=== PATIENT | male | born 1955 | race Caucasian/White ===

== ENCOUNTER 2019-11-16 23:33 | Emergency (ER) | payer MEDICARE, OTHER ==
[2019-11-17 00:05] VITALS: PULSE 71
--- NOTE | 2019-11-17 00:06 | ERPHSYRPT ---
- History of Present Illness Time Seen by Provider: 11/17/19 00:00 Source: patient Exam Limitations: no limitations Physician History: Is a 63-year-old male who was getting ready for bed when he felt something sting or bite him on the back of the neck. He swatted away what he thought to be a spider. then inspected the area and noticed an abnormality which look like a lesion was something in the middle so she tried to get out with forceps tweezers or some alcohol into the lesion. Timing/Duration: today Quality: burning, painful Severity: moderate Location: neck Possible Causes: insect bite, insect sting Modifying Factors: Improves With: other (All) Associated Symptoms: other (A lesion is noted on the back of the neck in a skin fold which has rounded margins and ulcerated center) Allergies/Adverse Reactions: No Known Drug Allergies Allergy (Unverified 06/09/13 18:20) Home Medications: Gabapentin 100 mg PO TID 06/09/13 [History] Hydrocodone Bit/Acetaminophen [Hydrocodon-Acetaminophen 5-325] 1 each PO TID [History] Allopurinol 100 mg [Zyloprim 100 mg] 100 mg PO TID 01/10/18 [History] Budesonide/Formoterol Fumarate [Symbicort 160-4.5 Mcg Inhaler] 10.2 gm IH BID [History] Furosemide 80 mg [Lasix 80 mg] 80 mg PO DAILY PRN PRN 01/10/18 [History] Ibuprofen [Ibu] 600 mg PO TID PRN 01/10/18 [History] Losartan/Hydrochlorothiazide [Losartan-Hctz 100-25 mg Tab] 1 each PO DAILY 01/10 [History] Metoprolol Succinate 100 mg [Toprol Xl 100 MG] 100 mg PO DAILY 01/10/18 [ History] PANTOPRAZOLE 40 mg Tablet [Protonix 40MG Tablet] 40 mg PO QAM 01/10/18 [ History] Simvastatin 40 mg [Zocor 40 mg] 40 mg PO QHS 01/10/18 [History] Sitagliptin Phos/Metformin HCl [Janumet 50-1,000 mg Tablet] 1 each PO DAILY [History] Hx Tetanus, Diphtheria Vaccination/Date Given: Yes Hx Influenza Vaccination/Date Given: Yes Hx Pneumococcal Vaccination/Date Given: Yes - Review of Systems Constitutional: No Fever, No Chills Eyes: No Symptoms Ears, Nose, & Throat: No Symptoms Respiratory: No Cough, No Dyspnea Cardiac: No Chest Pain, No Edema, No Syncope Abdominal/Gastrointestinal: No Abdominal Pain, No Nausea, No Vomiting, No Diarrhea Genitourinary Symptoms: No Dysuria Musculoskeletal: No Back Pain, No Neck Pain Skin: Skin Lesions, No Rash Neurological: No Dizziness, No Focal Weakness, No Sensory Changes Psychological: No Symptoms Endocrine: No Symptoms All Other Systems: Reviewed and Negative - Past Medical History Pertinent Past Medical History: Yes Neurological History: No Pertinent History Cardiac History: High Cholesterol, Hypertension Respiratory History: Bronchitis, COPD Endocrine Medical History: Diabetes Type II Musculoskeletal History: Arthritis, Degenerative Disk Disease GI Medical History: GERD Other Medical History: PREVIOUS BILATERA RENETTA; 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 HAD B CTR APPROX 20 YEARS AGO. - Past Surgical History Past Surgical History: Yes Musculoskeletal: Joint Replacement (hips) Other Surgical History: CARPAL TUNNEL BILAT. LT FOOT BONE SPUR - Social History Smoking Status: Former smoker Exposure to second hand smoke: No Alcohol Use: Socially Drug Use: none Patient Lives Alone: No Significant Family History: no pertinent family hx - Physical Exam General Appearance: mild distress, alert, obese Eye Exam: PERRL/EOMI, eyes nml inspection Ears, Nose, Throat Exam: normal ENT inspection, pharynx normal, moist mucous membranes Neck Exam: normal inspection, non-tender, supple, full range of motion Respiratory Exam: normal breath sounds, lungs clear, No respiratory distress Cardiovascular Exam: regular rate/rhythm, normal heart sounds Gastrointestinal/Abdomen Exam: soft, mass, No tenderness Back Exam: normal inspection, normal range of motion, No CVA tenderness, No vertebral tenderness Extremity Exam: normal inspection, normal range of motion Neurologic Exam: alert, oriented x 3, cooperative, normal mood/affect, sensation nml, No motor deficits Skin Exam: normal color, warm, dry, other (To the posterior neck and left skin fold shows a lesion which measures about three fourths of a centimeter across with a central ulceration with mounded red aid edges like a basal cell also be an insect bite but it appears older than the timing described by the patient.) Lymphatic Exam: No adenopathy O2 Delivery: Room Air - Course Nursing assessment & vital signs reviewed: Yes - Progress Progress: unchanged - Departure Departure Disposition: Home Clinical Impression: Insect bite Condition: Stable Critical Care Time: No Referrals: EMILY DUVALL MD [Primary Care Provider] - Instructions: Insect Bites and Stings (DC) Prescriptions: Cephalexin Mh 500 mg [Keflex 500 mg] 500 mg PO TID #21 capsule
[2019-11-17] MEDS ORDERED: KEFLEX 500 MG PO ONE (00:07)
[2019-11-17] MEDS ORDERED: KEFLEX 500 MG ONE (00:10)
[2019-11-17 00:25] VITALS: BP 125/74; O2SAT 93
== END 2019-11-17 00:24 | disposition home or self-care (01) ==
LOC: ED 23:33
DX: S10.86XA Insect bite of other specified part of neck, initial encounter (principal); Z79.899 Other long term (current) drug therapy; I10 Essential (primary) hypertension; E78.00 Pure hypercholesterolemia, unspecified; J44.9 Chronic obstructive pulmonary disease, unspecified; E11.9 Type 2 diabetes mellitus without complications; K21.9 Gastro-esophageal reflux disease without esophagitis
CPT/HCPCS: 99283; A9270-GY

== ENCOUNTER 2023-02-03 10:38 | Emergency (ER) | payer MEDICARE, OTHER ==
[2023-02-03 11:52] LABS: Absolute Neutrophil Ct (ANC) 5.79 x10^3/uL (1.4-6.9); BASOPHIL % 0.7 % (0.0-0.4); Basophil (Absolute #) 0.05 x10^3/uL (0-0.4); Eosinophil % 2.5 % (0.00-5.0); Eosinophil (Absolute #) 0.18 x10^3/uL (0-0.5); Hematocrit 33.5 % (42-50); Hemoglobin 10.5 g/dL (12.5-18.0); IMMATURE GRAN # 0.02 x10^3u/L (0.00-0.03); IMMATURE GRAN % 0.3 % (0.00-0.4); Lymphocyte (Absolute #) 0.76 x10^3/uL (1.0-4.6); Lymphocytes % 10.5 % (24.0-44.0); Mean Cell Volume 105.3 fL (78-100); Mean Corpuscular Hgb Concent. 31.3 g/dL (32-36); Mean Platelet Volume 10.1 fL (7.5-11.0); Monocyte (Absolute #) 0.47 x10^3/uL (0.0-1.3); Monocytes % 6.5 % (0.0-12.0); Neutrophil % 79.5 % (36.0-66.0); Platelet Count 197 x10^3/uL (150-450); Red Blood Count 3.18 x10^6/uL (4.1-5.6); Red Cell Distribution Width 16.4 % (11.5-14.0); White Blood Count 7.3 x10^3/uL (4.0-10.5)
[2023-02-03 12:04] LABS: ALBUMIN 3.9 g/dL (3.5-5.0); ALKALINE PHOSPHATASE 133 U/L (38-126); ANION GAP 15.3 MEQ/L (5-15); BLOOD UREA NITROGEN 32 mg/dL (9-20); CHLORIDE 106 mmol/L (98-107); Calcium 8.8 mg/dL (8.4-10.2); Carbon Dioxide 25 mmol/L (22-30); EST GLOMERULAR FILTRATION RATE > 60.0 ML/MIN; Glucose 100 mg/dL (74-106); INR 1.05 (0.8-3.0); PROTIME 11.4 SECONDS (9.4-12.5); PTT 29.9 SECONDS (25.1-36.5); Potassium 4.8 mmol/L (3.5-5.1); SGOT/AST 24 U/L (17-59); SGPT/ALT 21 U/L (0-50); SODIUM 141 mmol/L (137-145); Total Protein 7.2 g/dL (6.3-8.2)
[2023-02-03 12:50] VITALS: O2SAT 94
--- NOTE | 2023-02-03 12:50 | ERPHSYRPT ---
- History of Present Illness Source: patient, other () Exam Limitations: no limitations Patient Subjective Stated Complaint: PT HERE FOR A FALL TODAY, HE WAS GETTING IN TRUCK AND BECAME UNSTEADY AND LOWERED SELF TO GROUND, HE STATES HES LEFT LEG WAS BENT BACK HE WAS HELPED ONTO CART AND BROUGHT INTO ER Triage Nursing Assessment: PT ALERT, REAP EASY, SKIN W/D/P, SKIN W/D/P, MOVES ALL EXT, HAS SMALL SKIN TEAR TO RIGHT ELBOW Physician History: 67 yo WM fell while getting into his truck after getting blood work at hospital. Pt states that he landed on his LLE flexed position and complains of L thigh, L hip, and buttock pain which is minimal. He denies LOC/head injury/chest injury- chest pain/abdominal pain/dyspnea/C,T, or L-spine pain/UE pain. Pt is 2L O2 dependent at home. later expressed concern in private that pt is a little lethargic. Occurred: just prior to arrival Reason for Fall: lost balance Injuries/Pain Location: lower (L hip/L thigh/buttocks) Loss of Consciousness: no loss of consciousness Quality: aching Severity of Pain-Max: moderate Severity of Pain-Current: moderate Modifying Factors: Improves With: movement Associated Symptoms (Fall): denies symptoms Allergies/Adverse Reactions: No Known Drug Allergies Allergy (Verified 02/03/23 10:58) Home Medications: Gabapentin 100 mg PO TID 06/09/13 [History] Hydrocodone/Acetaminophen [Hydrocodon-Acetaminophen 5-325] 1 each PO TID 06/09/13 [History] Allopurinol 100 mg [Zyloprim 100 mg] 100 mg PO TID 01/10/18 [History] Budesonide/Formoterol Fumarate [Symbicort 160-4.5 Mcg Inhaler] 10.2 gm IH BID 01/10/18 [History] Furosemide 80 mg [Lasix 80 mg] 80 mg PO DAILY PRN PRN 01/10/18 [History] Ibuprofen [Ibu] 600 mg PO TID PRN 01/10/18 [History] Losartan/Hydrochlorothiazide [Losartan-Hctz 100-25 mg Tab] 1 each PO DAILY 01/10/18 [History] Metoprolol Succinate 100 mg [Toprol Xl 100 MG] 100 mg PO DAILY 01/10/18 [History] PANTOPRAZOLE 40 mg Tablet [Protonix 40MG Tablet] 40 mg PO QAM 01/10/18 [History] Simvastatin 40 mg [Zocor 40 mg] 40 mg PO QHS 01/10/18 [History] Sitagliptin Phos/Metformin HCl [Janumet 50-1,000 mg Tablet] 1 each PO DAILY 01/10/18 [History] Rivaroxaban [Xarelto] 20 mg PO DAILY 02/03/23 [History] Hx Tetanus, Diphtheria Vaccination/Date Given: Yes Hx Influenza Vaccination/Date Given: Yes Hx Pneumococcal Vaccination/Date Given: Yes Immunizations Up to Date: Yes Travel Risk - International Travel Have you traveled outside of the country in past 3 weeks: No - Coronavirus Screening Are you exhibiting any of the following symptoms?: No Close contact with a COVID-19 positive Pt in past 14-21 Days: No - Vaccine Status Have you recieved a Covid-19 vaccination: Yes 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: [facility] - Vaccination Dates Date of 2cond Vaccination (if applicable): 2020 - Review of Systems Constitutional: No Symptoms Eyes: No Symptoms Ears, Nose, & Throat: No Symptoms Respiratory: No Symptoms Cardiac: No Symptoms Abdominal/Gastrointestinal: No Symptoms Genitourinary Symptoms: No Symptoms Skin: No Symptoms Neurological: No Symptoms Psychological: No Symptoms Endocrine: No Symptoms Hematologic/Lymphatic: No Symptoms Immunological/Allergic: No Symptoms - Past Medical History Pertinent Past Medical History: Yes Neurological History: No Pertinent History Cardiac History: High Cholesterol, Hypertension Respiratory History: Bronchitis, COPD Endocrine Medical History: Diabetes Type II Musculoskeletal History: Arthritis, Degenerative Disk Disease GI Medical History: GERD Other Medical History: PREVIOUS BILATERA RENETTA; 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 HAD B CTR APPROX 20 YEARS AGO. [place] ,NODULES ON LUNG 2022 - Past Surgical History Past Surgical History: Yes Musculoskeletal: Joint Replacement, Orthopedic Surgery Other Surgical History: CARPAL TUNNEL BILAT. LT FOOT BONE SPUR. SHOULDER,. HIPS - Social History Smoking Status: Former smoker Exposure to second hand smoke: No Alcohol Use: Socially Drug Use: none Patient Lives Alone: No Significant Family History: no pertinent family hx - Nursing Vital Signs Nursing Vital Signs: Initial Vital Signs Blood Pressure 119/60 02/03/23 11:00 Pain Scale Pain Intensity 0 WNL - Daniel Coma Score Best Eye Response ([place]): (4) open spontaneously Best Verbal Response (Daniel): (5) oriented Best Motor Response ([place]): (6) obeys commands Daniel Total: 15 - Physical Exam General Appearance: no apparent distress Head Injury: no evidence of injury Eye Exam: PERRL/EOMI, eyes nml inspection ENT Exam: airway nml, evidence of ENT injury, No clear fluid (ears), No clear fluid (nose) Neck Exam: supple, trachea midline, full range of motion (C-spine NTTP) Respiratory/Chest Exam: chest tenderness, normal breath sounds, No respiratory distress Cardiovascular Exam: irregular (Afib), No murmur Gastrointestinal Exam: soft, normal bowel sounds, No tenderness Back Exam: normal inspection, normal range of motion, No CVA tenderness, No vertebral tenderness (No T or L-spine TTP) Extremity Exam: normal inspection, pelvis stable (L hip mildly TTP) Peripheral Pulses: carotid (R): 2+, carotid (L): 2+ Neurologic Exam: alert, oriented x 3, cooperative, 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 II-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 nml as tested, normal mood/affect, nml cerebellar function, nml station & gait, sensation nml, No motor deficits, No sensory deficit Skin Exam: normal color, warm, dry SpO2 Interpretation: normal SpO2: 94 O2 Delivery: Room Air - Course Nursing assessment & vital signs reviewed: Yes EKG Interpreted by Me: RATE (67/Afib/Prolonged QTc/Low voltage/Non-specific ST- [place] changes) - Radiology Exams Chest X-ray Interpretation: Reviewed by me, Discussed w/ radiologist (CXR nothing acute) Femur X-ray Interpretation: Reviewed by me, Discussed w/ radiologist (L femur neg for Fx) - CT Exams Head CT Interpretation: Discussed w/radiologist (CT head neg) Pelvis CT Interpretation: Discussed w/radiologist (CT pelvis neg for Fx) Ordered Tests: Active Orders 24 hr Category Date Time Status EKG-ER Only STAT Care 02/03/23 12:54 Completed CHEST 1 VIEW (PORTABLE) Stat Exams 02/03/23 11:37 Completed FEMUR Stat Exams 02/03/23 11:13 Completed HEAD WITHOUT CONTRAST [CT] Stat Exams 02/03/23 11:35 Completed PELVIS WITHOUT CONTRAST [CT] Stat Exams 02/03/23 11:13 Completed CBC W DIFF Stat Lab 02/03/23 11:50 Completed CMP Stat Lab 02/03/23 11:50 Completed MAGNESIUM Stat Lab 02/03/23 11:50 Completed PROTIME WITH INR Stat Lab 02/03/23 11:50 Completed PTT Stat Lab 02/03/23 11:50 Completed TROPONIN Q4H Lab 02/03/23 11:50 Completed Lab/Rad Data: Laboratory Result Diagrams 02/03/23 11:50 02/03/23 11:50 Laboratory Results 02/03/23 02/03/23 02/03/23 Range/Units 11:50 11:50 11:50 WBC (4.0-10.5) x10^3/uL RBC (4.1-5.6) x10^6/uL Hgb (12.5-18.0) g/dL Hct (42-50) % MCV (78-100) fL MCH (26-32) pg MCHC (32-36) g/dL RDW (11.5-14.0) % Plt Count (150-450) x10^3/uL MPV (7.5-11.0) fL Gran % (36.0-66.0) % Immature Gran % (Auto) (0.00-0.4) % Nucleat RBC Rel Count (0.00-0.1) % Eos # (Auto) (0-0.5) x10^3/uL Immature Gran # (Auto) (0.00-0.03) x10^3u/L Absolute Lymphs (auto) (1.0-4.6) x10^3/uL Absolute Monos (auto) (0.0-1.3) x10^3/uL Absolute Nucleated RBC (0.00-0.01) x10^3u/L Lymphocytes % (24.0-44.0) % Monocytes % (0.0-12.0) % Eosinophils % (0.00-5.0) % Basophils % (0.0-0.4) % Absolute Granulocytes (1.4-6.9) x10^3/uL Basophils # (0-0.4) x10^3/uL PT 11.4 (9.4-12.5) SECONDS INR 1.05 (0.8-3.0) APTT 29.9 (25.1-36.5) SECONDS Sodium 141 (137-145) mmol/L Potassium 4.8 (3.5-5.1) mmol/L Chloride 106 (98-107) mmol/L Carbon Dioxide 25 (22-30) mmol/L Anion Gap 15.3 H (5-15) MEQ/L BUN 32 H (9-20) mg/dL Creatinine 0.80 (0.66-1.25) mg/dL Estimated GFR > 60.0 ML/MIN Glucose 100 (74-106) mg/dL Calcium 8.8 (8.4-10.2) mg/dL Magnesium 2.0 (1.6-2.3) mg/dL Total Bilirubin 0.40 (0.2-1.3) mg/dL AST 24 (17-59) U/L ALT 21 (0-50) U/L Alkaline Phosphatase 133 H (38-126) U/L Troponin I < 0.012 (0.000-0.034) ng/mL Serum Total Protein 7.2 (6.3-8.2) g/dL Albumin 3.9 (3.5-5.0) g/dL 02/03/23 Range/Units 11:50 WBC 7.3 (4.0-10.5) x10^3/uL RBC 3.18 L (4.1-5.6) x10^6/uL Hgb 10.5 L (12.5-18.0) g/dL Hct 33.5 L (42-50) % MCV 105.3 H (78-100) fL MCH 33.0 H (26-32) pg MCHC 31.3 L (32-36) g/dL RDW 16.4 H (11.5-14.0) % Plt Count 197 (150-450) x10^3/uL MPV 10.1 (7.5-11.0) fL Gran % 79.5 H (36.0-66.0) % Immature Gran % (Auto) 0.3 (0.00-0.4) % Nucleat RBC Rel Count 0.0 (0.00-0.1) % Eos # (Auto) 0.18 (0-0.5) x10^3/uL Immature Gran # (Auto) 0.02 (0.00-0.03) x10^3u/L Absolute Lymphs (auto) 0.76 L (1.0-4.6) x10^3/uL Absolute Monos (auto) 0.47 (0.0-1.3) x10^3/uL Absolute Nucleated RBC 0.00 (0.00-0.01) x10^3u/L Lymphocytes % 10.5 L (24.0-44.0) % Monocytes % 6.5 (0.0-12.0) % Eosinophils % 2.5 (0.00-5.0) % Basophils % 0.7 (0.0-0.4) % Absolute Granulocytes 5.79 (1.4-6.9) x10^3/uL Basophils # 0.05 (0-0.4) x10^3/uL PT (9.4-12.5) SECONDS INR (0.8-3.0) APTT (25.1-36.5) SECONDS Sodium (137-145) mmol/L Potassium (3.5-5.1) mmol/L Chloride (98-107) mmol/L Carbon Dioxide (22-30) mmol/L Anion Gap (5-15) MEQ/L BUN (9-20) mg/dL Creatinine (0.66-1.25) mg/dL Estimated GFR ML/MIN Glucose (74-106) mg/dL Calcium (8.4-10.2) mg/dL Magnesium (1.6-2.3) mg/dL Total Bilirubin (0.2-1.3) mg/dL AST (17-59) U/L ALT (0-50) U/L Alkaline Phosphatase (38-126) U/L Troponin I (0.000-0.034) ng/mL Serum Total Protein (6.3-8.2) g/dL Albumin (3.5-5.0) g/dL - Progress Progress Note: 02/03/23 13:38 Nursing note and vital signs reviewed No food or housing insecurities noted Additional history per All lab results reviewed and shared w pt/ CT results/XR results reviewed and shared w pt/ Pt refused pain meds during entire stay and has [place] at home Serial neuro exams WNL Pt's Hb has decreased over the last 2-3 months, but pt denies melena/hematochezia and has had regular colonoscopies per 02/03/23 14:08 Pt has difficult ambulation at baseline, and we were unable to get him into his truck. He refuses observation at this time, and is willing to take him home. She states that she has home health to help w his needs. Counseled pt/family regarding: lab results, diagnosis, need for follow-up, rad results Medical Desision Making - Independent Historian Additional History obtained from: Spouse - Diagnostic Testing Radiological Interpretation: Reviewed by me, Discussed w/ radiologist - Risk of complications Low Risk: Low risk of morbidity from additional dx testing or treatment - Departure Departure Disposition: Home Clinical Impression: Contusion of thigh, left, Strain of left hip Condition: Stable Critical Care Time: No Referrals: EMILY DUVALL MD [Primary Care Provider] - Follow up/PCP as directed Instructions: Contusion (DC), Preventing Falls in Older Adults Additional Instructions: Ice for 12-24 hours Continue with home pain meds Watch for blood in stool or black stool Return to ER as needed Follow up with your family
--- NOTE | 2023-02-03 13:02 | XRAY ---
Indication: Confusion and lethargy. Status post fall. Multiple contiguous axial images obtained through the head without contrast. Comparison: None Age-appropriate global atrophy. No acute intracranial hemorrhage, abnormal extra-axial fluid collection, or mass effect. Fourth ventricle is midline without hydrocephalus. Parekh-white matter differentiation preserved. Bony calvarium intact. Visualized paranasal sinuses and mastoid air cells are clear. Impression: Normal CT head without contrast exam for patient's age.
--- NOTE | 2023-02-03 13:06 | XRAY ---
Indication: Pain following fall. Multiple contiguous axial images obtained through the pelvis with special attention to the osseous structures. Sagittal and coronal reformatted images obtained. Comparison: None Extreme beam artifact from bilateral total hip arthroplasty limits exam. Remaining visualized osseous structures emesis osteopenia. Moderate degenerative changes visualized lower lumbar spine. No gross acute fracture, dislocation, or suspicious bony lesions. Visualized noncontrasted soft tissues demonstrates large infraumbilical fatty ventral hernia with small fluid. Also incidental small fatty left inguinal hernia and moderate scattered vascular calcifications. Impression: 1. 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 No gross acute fracture/dislocation. 2. Osteopenia, lower lumbar degenerative changes, fatty ventral hernia, fatty left inguinal hernia, and scattered arteriosclerotic disease.
--- NOTE | 2023-02-03 13:08 | XRAY ---
Indication: Status post fall. Comparison: July 27, 2022 Portable chest again demonstrates tiny right lung calcific granulomas. No focal infiltrate, consolidation, large effusion. Heart is not enlarged. Bony thorax intact again with osteopenia, degenerative changes, old right rib fractures, and mild dextroscoliosis. Interval bilateral shoulder arthroplasty. Impression: Continued nonacute chest with chronic features.
--- NOTE | 2023-02-03 13:08 | XRAY ---
Indication: Pain following fall. Comparison: None 2 view left femur demonstrates total hip arthroplasty with intact bipolar prosthesis, osteopenia, and moderate scattered vascular calcifications. No other bony, articular, or soft tissue abnormalities.
[2023-02-03 13:23] VITALS: BP 127/99; PULSE 61
== END 2023-02-03 14:43 | disposition home or self-care (01) ==
LOC: ED 10:38
DX: S76.012A Strain of muscle, fascia and tendon of left hip, initial encounter (principal); S70.12XA Contusion of left thigh, initial encounter; V58.4XXA Person boarding or alighting a pick-up truck or van injured in noncollision transport accident, initial encounter; Y92.481 Parking lot as the place of occurrence of the external cause; E78.5 Hyperlipidemia, unspecified; I10 Essential (primary) hypertension; E11.9 Type 2 diabetes mellitus without complications; Z79.01 Long term (current) use of anticoagulants; Z79.84 Long term (current) use of oral hypoglycemic drugs; Z79.891 Long term (current) use of opiate analgesic; Z79.899 Other long term (current) drug therapy
CPT/HCPCS: 36415; 70450; 71045; 72192; 73552; 80053; 83735; 84484; 85025; 85610; 85730; 93005; 99284

== ENCOUNTER 2023-04-30 22:15 | Emergency (ER) | payer MEDICARE, OTHER ==
[~2023-04-30 22:15] MED LIST: ATROPINE SULFATE 1MG SYR ABBOJECT IV ONE; GlucaGen 1 MG ONE
[2023-04-30] MEDS ORDERED: GlucaGen 1 MG IM ONE (22:16)
[2023-04-30] MEDS ORDERED: ATROPINE SULFATE 1MG SYR ABBOJECT IV ONE (22:21)
[2023-04-30] MEDS ORDERED: Zofran 4 MG/2 ML VIAL ONE (22:27)
[2023-04-30 23:20] LABS: Absolute Neutrophil Ct (ANC) 9.35 x10^3/uL (1.4-6.9); BASOPHIL % 0.2 % (0.0-0.4); Basophil (Absolute #) 0.02 x10^3/uL (0-0.4); Eosinophil % 1.5 % (0.00-5.0); Eosinophil (Absolute #) 0.15 x10^3/uL (0-0.5); Hematocrit 42.4 % (42-50); Hemoglobin 13.2 g/dL (12.5-18.0); IMMATURE GRAN # 0.03 x10^3u/L (0.00-0.03); IMMATURE GRAN % 0.3 % (0.00-0.4); Lymphocyte (Absolute #) 0.62 x10^3/uL (1.0-4.6); Mean Cell Volume 109.8 fL (78-100); Mean Corpuscular Hemoglobin 34.2 pg (26-32); Mean Corpuscular Hgb Concent. 31.1 g/dL (32-36); Mean Platelet Volume 10.2 fL (7.5-11.0); Monocyte (Absolute #) 0.15 x10^3/uL (0.0-1.3); Monocytes % 1.5 % (0.0-12.0); NUCLEATED RBC # 0.03 x10^3u/L (0.00-0.01); NUCLEATED RBC % 0.3 % (0.00-0.1); Neutrophil % 90.5 % (36.0-66.0); Platelet Count 279 x10^3/uL (150-450); Red Blood Count 3.86 x10^6/uL (4.1-5.6); Red Cell Distribution Width 16.7 % (11.5-14.0); White Blood Count 10.3 x10^3/uL (4.0-10.5)
--- NOTE | 2023-04-30 23:37 | ERPHSYRPT ---
- History of Present Illness Time Seen by Provider: 04/30/23 22:20 Source: patient, family, EMS Exam Limitations: clinical condition Patient Subjective Stated Complaint: per ems, pt was sitting on the bathroom stool and fell off, possible syncopal episode. heart rate was 20's and 30's when they arrived. Triage Nursing Assessment: pt alert and oriented, answers questions approp. pt alert and oriented, states he does have some dizziness, weakness. denies chest pain or pressure. skin dusky, diaphoretic. heart rate in 30's afib. unable to feel peripheral pulses at this time. Physician History: This is a morbidly obese 67-year-old white male patient who has a history of atrial fibrillation on Xarelto and metoprolol. He took his metoprolol this morning. He typically takes it once a day. However, he was started on propranolol 3 times a day. Despite already taking his metoprolol earlier today he took a dose of propranolol at 4 PM. Patient was sitting on the bathroom toilet when he fell off. There is a question whether he had a vasovagal response or syncopal episode. However he was very weak and minimally responsive. Paramedics were contacted and patient was brought into the emergency room by the ambulance service who provided independent medical history. His heart rate was in the 20s to 30s. However his systolic blood pressure was normal. He was symptomatic with dizziness. He denies chest pain. He also felt weak. His skin was cool and clammy and diaphoretic on arrival to the emergency department. Family, patient has a history of gastroesophageal reflux disease, morbid obesity hypertension diabetes and hyperlipidemia. Timing/Duration: today Activities at Onset: other (Using the toilet in the bathroom) Location: other (No chest pain) Severity of Pain-Max: none Severity of Pain-Current: none Nitro Today/Relief: no nitro taken today Aspirin Treatment Today: no aspirin today Associated Symptoms: diaphoresis, syncope, weakness, No nausea, No vomiting, No shortness of breath, No chest pain Prior Chest Pain/Cardiac Workup: cardiac cath, echocardiography Allergies/Adverse Reactions: pramipexole [From Mirapex] Allergy (Intermediate, Verified 04/30/23 22:39) hallucinations Home Medications: Gabapentin 800 mg PO TID 06/09/13 [History] Allopurinol 100 mg [Zyloprim 100 mg] 100 mg PO DAILY 01/10/18 [History] Metoprolol Succinate 100 mg [Toprol Xl 100 MG] 50 mg PO DAILY 01/10/18 [History] PANTOPRAZOLE 40 mg Tablet [Protonix 40MG Tablet] 40 mg PO QAM 01/10/18 [History] Rivaroxaban [Xarelto] 20 mg PO HS 02/03/23 [History] Albuterol 2.5 mg/3 ml Neb [Proventil 2.5 mg/3 ml Neb] 2.5 mg IH Q4-6HPRN PRN 05/01/23 [History] Atorvastatin Calcium 80 mg PO DAILY 05/01/23 [History] Clotrimazole/Betamethasone Dip [Clotrimazole-Betamethasone Lot] 1 applic TP BID 05/01/23 [History] Cyanocobalamin 1000 Mcg/ml [Cyanocobalamin B-12 1000 MCG/ML] 1,000 mcg IM UD 05/01/23 [History] Diphenoxylate HCl/Atropine [Lomotil Tablet] 1 each PO TIDPRN PRN 05/01/23 [History] Empagliflozin [Jardiance] 10 mg PO DAILY 05/01/23 [History] Fluticasone/Umeclidin/Vilanter [Trelegy Ellipta 100-62.5-25] 1 each IH DAILY 05/01/23 [History] Hydrocodone/Acetaminophen [Hydrocodone-Acetamin 10-325 mg] 1 each PO Q6HPRN PRN 05/01/23 [History] Latanoprost [Xalatan] 1 ml OP HS 05/01/23 [History] Losartan Potassium 50 mg [Cozaar 50 MG] 50 mg PO DAILY 05/01/23 [History] Metformin HCl [Glumetza] 1,000 mg PO BID 05/01/23 [History] Primidone 50 MG [Mysoline 50Mg] 200 mg PO TID 05/01/23 [History] Propranolol HCl [Inderal ] 20 mg PO TID 05/01/23 [History] Rasagiline Mesylate 1 mg PO DAILY 05/01/23 [History] Spironolactone 25 mg [Aldactone 25 MG] 25 mg PO DAILY 05/01/23 [History] Tamsulosin HCl 0.4 mg [Flomax 0.4 MG] 0.4 mg PO DAILY 05/01/23 [History] Torsemide 20 mg [Demadex 20 mg] 40 mg PO BID 05/01/23 [History] Hx Tetanus, Diphtheria Vaccination/Date Given: Yes Hx Influenza Vaccination/Date Given: Yes Hx Pneumococcal Vaccination/Date Given: Yes Immunizations Up to Date: Yes Travel Risk - International Travel Have you traveled outside of the country in past 3 weeks: No - Coronavirus Screening Are you exhibiting any of the following symptoms?: No Close contact with a COVID-19 positive Pt in past 14-21 Days: No - Vaccine Status Have you recieved a Covid-19 vaccination: Yes Route Rider Supervisor: Moderna - Vaccination Dates Date of 2cond Vaccination (if applicable): 2020 - Review of Systems Constitutional: No Symptoms Eyes: No Symptoms Ears, Nose, & Throat: No Symptoms Respiratory: No Symptoms Cardiac: Syncope, Other (Slow heart rate) Abdominal/Gastrointestinal: No Symptoms Genitourinary Symptoms: No Symptoms Musculoskeletal: No Symptoms Skin: No Symptoms Neurological: Dizziness Psychological: No Symptoms Endocrine: No Symptoms Hematologic/Lymphatic: No Symptoms Immunological/Allergic: No Symptoms All Other Systems: Reviewed and Negative - Past Medical History Pertinent Past Medical History: Yes Neurological History: No Pertinent History Cardiac History: Congestive Heart Failure, High Cholesterol, Hypertension Respiratory History: Bronchitis, CHF, COPD Endocrine Medical History: Diabetes Type II Musculoskeletal History: Arthritis, Degenerative Disk Disease GI Medical History: GERD Other Medical History: PREVIOUS BILATERA RENETTA; 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 HAD B CTR APPROX 20 YEARS AGO. [place] ,NODULES ON LUNG 2022. 80% coronary artery blockage and scheduled for heart cath - Past Surgical History Past Surgical History: Yes Musculoskeletal: Joint Replacement, Orthopedic Surgery Other Surgical History: CARPAL TUNNEL BILAT. LT FOOT BONE SPUR. SHOULDER,. HIPS - Social History Smoking Status: Former smoker Exposure to second hand smoke: No Alcohol Use: Socially Drug Use: none Patient Lives Alone: No Significant Family History: no pertinent family hx - Nursing Vital Signs Nursing Vital Signs: Initial Vital Signs Pulse Rate 38 L 04/30/23 22:16 Respiratory Rate 18 04/30/23 22:16 Blood Pressure 115/59 04/30/23 22:16 O2 Sat by Pulse Oximetry 92 L 04/30/23 22:16 Pain Scale Pain Intensity 0 - Physical Exam General Appearance: mild distress, alert, anxiety, obese Eye Exam: PERRL/EOMI, eyes nml inspection Ears, Nose, Throat Exam: normal ENT inspection, moist mucous membranes Neck Exam: normal inspection, non-tender, supple, full range of motion Respiratory Exam: normal breath sounds, lungs clear, airway intact, No chest tenderness, No respiratory distress Cardiovascular Exam: normal heart sounds, normal peripheral pulses, bradycardia Rectal Exam: not done Back Exam: normal inspection, normal range of motion, No CVA tenderness, No vertebral tenderness Extremity Exam: normal range of motion, pelvis stable Neurologic Exam: alert, oriented x 3, cooperative, tableau developer II-XII nml as tested, other Skin Exam: diaphoresis, pale Lymphatic Exam: No adenopathy SpO2 Interpretation: borderline oxygenation SpO2: 94 O2 Delivery: Nasal Cannula (4 L oxygen. He is usually on this amount of oxygen at home) - Course Nursing assessment & vital signs reviewed: Yes EKG Interpreted by Me: RATE (27), Other (This has heart rate of 27 and junctional rhythm. No obvious acute ischemic changes.) Ordered Tests: Active Orders 24 hr Category Date Time Status EKG-ER Only STAT Care 04/30/23 23:15 Active Byrd [Catheter-[place] Byrd] STAT Care 05/01/23 03:06 Active IV Insertion STAT Care 04/30/23 23:15 Active BMP Stat Lab 05/01/23 02:55 Completed BMP Stat Lab 05/01/23 07:00 Ordered CBC W DIFF Stat Lab 04/30/23 23:17 Completed CMP Stat Lab 04/30/23 23:17 Completed MAG [MAGNESIUM] Stat Lab 04/30/23 23:17 Completed TROPONIN Q4H Lab 04/30/23 23:17 Completed TROPONIN Q4H Lab 05/01/23 02:55 Completed TROPONIN Q4H Lab 05/01/23 07:15 Ordered Respiratory Therapy Assessment DAILY RT 05/01/23 00:43 Completed Medication Summary Discontinued Medications Generic Name Dose Route Start Last Admin Trade Name Freq PRN Reason Stop Dose Admin Albuterol Sulfate 2.5 mg 05/01/23 00:42 05/01/23 00:46 Albuterol Sulfate 2.5 Mg/3 Ml Neb IH 05/01/23 00:43 2.5 mg STAT ONE Administration Albuterol Sulfate Confirm 05/01/23 00:45 Albuterol Sulfate 2.5 Mg/3 Ml Neb Administered 05/01/23 00:46 Dose 2.5 mg IH .STK-MED ONE Calcium Gluconate 1,000 mg 04/30/23 23:43 05/01/23 00:05 Calcium Gluconate 1000 Mg/10 Ml Vial IV 04/30/23 23:44 1,000 mg STAT ONE Administration Calcium Gluconate Confirm 04/30/23 23:57 Calcium Gluconate 1000 Mg/10 Ml Vial Administered 04/30/23 23:58 Dose 1,000 mg IV .STK-MED ONE Dextrose 50 ml 05/01/23 00:58 05/01/23 01:01 Dextrose 50%-Water 50 Ml Abboject IV 05/01/23 00:59 50 ml STAT ONE Administration Dextrose Confirm 05/01/23 00:59 Dextrose 50%-Water 50 Ml Abboject Administered 05/01/23 01:00 Dose 50 ml IV .STK-MED ONE Dextrose 50 ml 05/01/23 03:25 05/01/23 05:20 Dextrose 50%-Water 50 Ml Abboject IV 05/01/23 03:26 50 ml STAT ONE Administration Dextrose Confirm 05/01/23 05:17 Dextrose 50%-Water 50 Ml Abboject Administered 05/01/23 05:18 Dose 50 ml IV .STK-MED ONE Furosemide 20 mg 05/01/23 00:39 05/01/23 00:55 Furosemide 20 Mg/Vial IV 05/01/23 00:40 20 mg STAT ONE Administration Furosemide Confirm 05/01/23 00:47 Furosemide 20 Mg/Vial Administered 05/01/23 00:48 Dose 20 mg .ROUTE .STK-MED ONE Furosemide 20 mg 05/01/23 03:26 05/01/23 05:20 Furosemide 20 Mg/Vial IV 05/01/23 03:27 20 mg STAT ONE Administration Furosemide Confirm 05/01/23 05:16 Furosemide 20 Mg/Vial Administered 05/01/23 05:17 Dose 20 mg .ROUTE .STK-MED ONE Sodium Chloride Confirm 05/01/23 00:00 Sodium Chloride 0.9% Administered 05/01/23 00:01 Dose 100 mls @ ud .ROUTE .STK-MED ONE Insulin Human Regular 6 unit 05/01/23 00:39 05/01/23 01:02 Insulin Regular, Human 1 Unit IV 05/01/23 00:40 6 unit STAT ONE Administration Insulin Human Regular Confirm 05/01/23 00:53 Insulin Regular, Human 1 Unit Administered 05/01/23 00:54 Dose 6 unit .ROUTE .STK-MED ONE Insulin Human Regular 5 unit 05/01/23 03:26 05/01/23 05:20 Insulin Regular, Human 1 Unit IV 05/01/23 03:27 5 unit STAT ONE Administration Insulin Human Regular Confirm 05/01/23 05:16 Insulin Regular, Human 1 Unit Administered 05/01/23 05:17 Dose 5 unit .ROUTE .STK-MED ONE Ondansetron HCl Confirm 04/30/23 22:27 Ondansetron Hcl 4 Mg/2 Ml Vial Administered 04/30/23 22:28 Dose 4 mg .ROUTE .STK-MED ONE Patiromer 8.4 gm 05/01/23 00:41 05/01/23 00:55 Patiromer Calcium Sorbitex 8.4 Gm Powd.Pack PO 05/01/23 00:42 8.4 gm STAT STA Administration Patiromer Confirm 05/01/23 00:47 Patiromer Calcium Sorbitex 8.4 Gm Powd.Pack Administered 05/01/23 00:48 Dose 8.4 gm PO .STK-MED ONE Sodium Bicarbonate 50 meq 05/01/23 00:38 05/01/23 00:54 Sodium Bicarbonate 1 Meq/Ml 50ml Syringe IV 05/01/23 00:39 50 meq STAT ONE Administration Sodium Bicarbonate Confirm 05/01/23 00:48 Sodium Bicarbonate 1 Meq/Ml 50ml Syringe Administered 05/01/23 00:49 Dose 50 meq IV .STK-MED ONE Sodium Bicarbonate 50 meq 05/01/23 03:25 05/01/23 05:19 Sodium Bicarbonate 1 Meq/Ml 50ml Syringe IV 05/01/23 03:26 50 meq STAT ONE Administration Sodium Bicarbonate Confirm 05/01/23 05:18 Sodium Bicarbonate 1 Meq/Ml 50ml Syringe Administered 05/01/23 05:19 Dose 50 meq IV .STK-MED ONE Lab/Rad Data: Laboratory Result Diagrams 04/30/23 23:17 05/01/23 02:55 Laboratory Results 05/01/23 05/01/23 04/30/23 Range/Units 02:55 02:55 23:17 WBC (4.0-10.5) x10^3/uL RBC (4.1-5.6) x10^6/uL Hgb (12.5-18.0) g/dL Hct (42-50) % MCV (78-100) fL MCH (26-32) pg MCHC (32-36) g/dL RDW (11.5-14.0) % Plt Count (150-450) x10^3/uL MPV (7.5-11.0) fL Gran % (36.0-66.0) % Immature Gran % (Auto) (0.00-0.4) % Nucleat RBC Rel Count (0.00-0.1) % Eos # (Auto) (0-0.5) x10^3/uL Immature Gran # (Auto) (0.00-0.03) x10^3u/L Absolute Lymphs (auto) (1.0-4.6) x10^3/uL Absolute Monos (auto) (0.0-1.3) x10^3/uL Absolute Nucleated RBC (0.00-0.01) x10^3u/L Lymphocytes % (24.0-44.0) % Monocytes % (0.0-12.0) % Eosinophils % (0.00-5.0) % Basophils % (0.0-0.4) % Absolute Granulocytes (1.4-6.9) x10^3/uL Basophils # (0-0.4) x10^3/uL Sodium 136 L (137-145) mmol/L Potassium 7.6 H* (3.5-5.1) mmol/L Chloride 100 (98-107) mmol/L Carbon Dioxide 30 (22-30) mmol/L Anion Gap 14.2 (5-15) MEQ/L BUN 31 H (9-20) mg/dL Creatinine 1.53 H (0.66-1.25) mg/dL Estimated GFR 48.2 ML/MIN Glucose 73 L (74-106) mg/dL Calcium 9.2 (8.4-10.2) mg/dL Magnesium 2.2 (1.6-2.3) mg/dL Total Bilirubin (0.2-1.3) mg/dL AST (17-59) U/L ALT (0-50) U/L Alkaline Phosphatase (38-126) U/L Troponin I < 0.012 (0.000-0.034) ng/mL Serum Total Protein (6.3-8.2) g/dL Albumin (3.5-5.0) g/dL 04/30/23 04/30/23 04/30/23 Range/Units 23:17 23:17 00:15 WBC 10.3 (4.0-10.5) x10^3/uL RBC 3.86 L (4.1-5.6) x10^6/uL Hgb 13.2 (12.5-18.0) g/dL Hct 42.4 (42-50) % MCV 109.8 H (78-100) fL MCH 34.2 H (26-32) pg MCHC 31.1 L (32-36) g/dL RDW 16.7 H (11.5-14.0) % Plt Count 279 (150-450) x10^3/uL MPV 10.2 (7.5-11.0) fL Gran % 90.5 H (36.0-66.0) % Immature Gran % (Auto) 0.3 (0.00-0.4) % Nucleat RBC Rel Count 0.3 H (0.00-0.1) % Eos # (Auto) 0.15 (0-0.5) x10^3/uL Immature Gran # (Auto) 0.03 (0.00-0.03) x10^3u/L Absolute Lymphs (auto) 0.62 L (1.0-4.6) x10^3/uL Absolute Monos (auto) 0.15 (0.0-1.3) x10^3/uL Absolute Nucleated RBC 0.03 H (0.00-0.01) x10^3u/L Lymphocytes % 6.0 L (24.0-44.0) % Monocytes % 1.5 (0.0-12.0) % Eosinophils % 1.5 (0.00-5.0) % Basophils % 0.2 (0.0-0.4) % Absolute Granulocytes 9.35 H (1.4-6.9) x10^3/uL Basophils # 0.02 (0-0.4) x10^3/uL Sodium 135 L 140 (137-145) mmol/L Potassium 8.7 H* 7.7 H* (3.5-5.1) mmol/L Chloride 101 102 (98-107) mmol/L Carbon Dioxide 25 27 (22-30) mmol/L Anion Gap 18.1 H 17.8 H (5-15) MEQ/L BUN 27 H 29 H (9-20) mg/dL Creatinine 1.58 H 1.53 H (0.66-1.25) mg/dL Estimated GFR 46.4 48.2 ML/MIN Glucose 206 H 67 L (74-106) mg/dL Calcium 9.1 9.3 (8.4-10.2) mg/dL Magnesium (1.6-2.3) mg/dL Total Bilirubin 0.60 (0.2-1.3) mg/dL AST 67 H (17-59) U/L ALT 40 (0-50) U/L Alkaline Phosphatase 158 H (38-126) U/L Troponin I < 0.012 (0.000-0.034) ng/mL Serum Total Protein 7.8 (6.3-8.2) g/dL Albumin 4.4 (3.5-5.0) g/dL - Progress Progress: improved, re-examined Air Movement: good Progress Note: 04/30/23 23:41 Repeat, twelve-lead EKG on 04/30/2023 at 2230 was performed after patient received a total of 5 mg intravenous glucagon total and 1 mg intravenous atropine x2. Patient has atrial fibrillation with a heart rate of 71 bpm with nonspecific intraventricular conduction delay. I do not appreciate an acute ischemic change in the repeat twelve-lead EKG. 05/01/23 00:53 Additional history obtained from the patient's who stated that the patient uses the product "non salt" on everything that he eats. Patient does have history of renal insufficiency and he admits he uses this product which contains potassium hydroxide. This patient's medical issue is 1 of high complexity. Level of complexity in t he work-up performed is based on review of the patient's past medical history, review of the patient's medication list, history of present illness and review of the patient's drug allergy list as well as findings on physical examination. This patient required emergent intervention with intravenous line placement, infusion of glucagon 5 mg total as well as 2 rounds of atropine 1 mg intravenously because of his significant bradycardia. Patient's heart rate was in the 25 to 35 bpm. Patient underwent a twelve-lead EKG, CBC, CMP, troponin level. Patient's heart rate responded to the intervention. The repeat twelve- lead EKG is as stated above. The results of the laboratory studies were reviewed and interpreted by me. The initial potassium level showed 8.2. It was difficult for me to believe that this was his only real significant abnormality. We repeated the potassium and it was in fact elevated. This time, 7.7. After the initial potassium level was obtained then I immediately added 1 amp of calcium gluconate. Now that the repeat potassium was 7.7, I ordered albuterol nebulizer treatment, Lasix 20 mg intravenously, an amp of D50, and 6 units of intravenous insulin and 1 amp of sodium bicarb 05/01/23 03:23 I did speak with Dr. Reyes who is covering for [facility]. I reviewed the patient history, medication list, physical findings, 12-lead EKG results and laboratory results. He accepts the patient in transfer. They will be contacting us when a bed becomes available. 05/01/23 06:03 The updated plan is for the patient to be transferred to [facility] once a bed becomes available. It should be sometime this morning. [facility] technician support association center. We will order a BMP at 7 PM. Transfer of care to Dr. Rodríguez at shift change. He will follow-up on outstanding labs and make final disposition. Blood Culture(s) Obtained: No Antibiotics given: No Counseled pt/family regarding: lab results, diagnosis, need for follow-up Medical Desision Making - Independent Historian Additional History obtained from: Spouse, Naphthalene Operator Helper/EMT - Discussion of managment Care discussed with:: specialist (To transfer [facility]) Reviewed:: Test results, Need for additional workup - Diagnostic Testing Diagnostic test were ordered, analyzed, and reviewed by me: Yes Radiological Interpretation: Reviewed by me, Teleradiologist Report - Risk of complications The pt has a high risk of morbidity or mortality based on: Decision regarding hospitilization or escalation of hosp level of care - Departure Departure Disposition: Transfer Clinical Impression: Symptomatic bradycardia, Hypotension, Hyperkalemia, Chronic renal failure Condition: Fair Critical Care Time: Yes Critical Care Time(excluding separately billable procedures): Critical 30-74 mins (60 minutes) Referrals: EMILY DUVALL MD [Primary Care Provider] - Follow up/PCP as directed
[2023-04-30 23:38] LABS: ALBUMIN 4.4 g/dL (3.5-5.0); ALKALINE PHOSPHATASE 158 U/L (38-126); ANION GAP 18.1 MEQ/L (5-15); BLOOD UREA NITROGEN 27 mg/dL (9-20); CHLORIDE 101 mmol/L (98-107); Calcium 9.1 mg/dL (8.4-10.2); Carbon Dioxide 25 mmol/L (22-30); Creatinine 1 1.58 mg/dL (0.66-1.25); EST GLOMERULAR FILTRATION RATE 46.4 ML/MIN; Glucose 206 mg/dL (74-106); SGOT/AST 67 U/L (17-59); SGPT/ALT 40 U/L (0-50); SODIUM 135 mmol/L (137-145); TROPONIN < 0.012 ng/mL (0.000-0.034); Total Protein 7.8 g/dL (6.3-8.2)
[2023-04-30] MEDS ORDERED: Calcium Gluconate 10% 1000 MG IV ONE ×2 (23:43→23:57)
[2023-04-30 23:44] LABS: Potassium 8.7 mmol/L (3.5-5.1)
[2023-05-01] MEDS ORDERED: Sodium Chloride 0.9% 100 ML ONE
[2023-05-01 00:32] LABS: ANION GAP 17.8 MEQ/L (5-15); Calcium 9.3 mg/dL (8.4-10.2); Creatinine 1 1.53 mg/dL (0.66-1.25); EST GLOMERULAR FILTRATION RATE 48.2 ML/MIN
[2023-05-01 00:35] LABS: Potassium 7.7 mmol/L (3.5-5.1)
[2023-05-01] MEDS ORDERED: SODIUM BICARBONATE 50 MEQ/50 ML ABBOJECT IV ONE ×4 (00:38→05:18)
[2023-05-01] MEDS ORDERED: Lasix 20 MG/2 ML IV ONE ×2 (00:39→03:26)
[2023-05-01] MEDS ORDERED: VELTASSA PO STA (00:41)
[2023-05-01] MEDS ORDERED: PROVENTIL 2.5 MG/3 ML NEB IH ONE ×2 (00:42→00:45)
[2023-05-01] MEDS ORDERED: Lasix 20 MG/2 ML ONE ×2 (00:47→05:16)
[2023-05-01] MEDS ORDERED: VELTASSA PO ONE (00:47)
[2023-05-01] MEDS ORDERED: HUMULIN R ONE ×2 (00:53→05:16)
[2023-05-01] MEDS: HUMULIN R IV ONE ×2 (00:54→01:02)
[2023-05-01] MEDS ORDERED: D50W 50 ml Abboject IV ONE ×4 (00:58→05:17)
[2023-05-01 03:12] LABS: ANION GAP 14.2 MEQ/L (5-15); Calcium 9.2 mg/dL (8.4-10.2); Creatinine 1 1.53 mg/dL (0.66-1.25); EST GLOMERULAR FILTRATION RATE 48.2 ML/MIN
[2023-05-01 03:19] LABS: Potassium 7.6 mmol/L (3.5-5.1)
[2023-05-01] MEDS ORDERED: HUMULIN R IV ONE (03:26)
[2023-05-01 07:15] LABS: ANION GAP 13.2 MEQ/L (5-15); Calcium 9.2 mg/dL (8.4-10.2); Creatinine 1 1.41 mg/dL (0.66-1.25); Potassium 5.4 mmol/L (3.5-5.1)
[2023-05-01 07:59] VITALS: O2SAT 94
--- NOTE | 2023-05-01 10:07 | XRAY ---
CLINICAL HISTORY:fall COMPARISON:None TECHNIQUE:Axial non-contrast CT scan of the brain was performed from the skull base to the high parietal region. ;CTDI: 53.92, DLP: 1016.25, FINDINGS: No definite calvarium fractures. No intracerebral or extra axial hematoma. Age-appropriate brain involutional changes and white matter hypoattenuation of chronic small vessel ischemic disease noted. Parekh-white matter differentiation is maintained. No midline shifts or deformity. Normal CT appearance of the posterior fossa structures namely the cerebellar hemispheres, brainstem and cerebellar peduncles. The cerebello-pontine angles are clear. The pituitary gland, the pineal gland, and the optic chiasm is unremarkable. The scanned paranasal sinuses are clear. IMPRESSION: No acute findings. No definite calvarium fractures. No intracerebral or extra axial hematoma. Age-appropriate brain involutional changes and chronic small vessel ischemic disease. No evidence of ischemic infarction or obvious space-occupying lesion seen. Electronically Signed by: Diane Arciniega MD. (05/01/2023 09:06:33 AUDIT CONTROL CLERK)
--- NOTE | 2023-05-01 10:44 | XRAY ---
CLINICAL HISTORY:lethargy COMPARISON:None TECHNIQUE:Contiguous axial CT images of the chest were acquired without administration of intravenous contrast. Coronal and sagittal reconstructions were obtained. CTD 16.04 mGy, DLP 692.91 mGy cm. FINDINGS: 1.1 x 1.6 cm spiculated solid nodule with irregular margins is seen in apical segment of right upper lobe. 0.8 x 0.6cm diffusely calcified nodule is seen in the right lower lobe. Mildly elevated dome of right hemidiaphragm. No free or encysted pleural effusion. Heart size is normal and there is no pericardial effusion. No pathologically enlarged mediastinal, hilar or axillary lymph node identified. Pulmonary trunk is mildly dilated measuring 3.1cm. Patent tracheobronchial tree. Few fluid attenuated areas seen in the right lobe of liver likely, one of these measures 1.0 x 1.1 cm, likely hepatic cyst. Few tiny specks of calcification seen in the spleen likely benign. Rest of the scanned upper abdomen is unremarkable. Old traumatic changes seen in 7th rib on right side in posterolateral aspect. Bilateral shoulder prosthesis seen, no evidence of loosening or break seen. These are resulting in streak artifacts obscuring fine details. Generalized reduced bone density seen. Mild to moderate degenerative changes are seen in the visualized spine as evident by osteophytosis and reduced intervertebral disc spaces. IMPRESSION: 1.1 x 1.6 cm spiculated solid nodule is seen in right upper lobe. According to Fleischner guidelines, follow-up CT at 3 months / PET CT / tissue sampling is advised 0.8 x 0.6cm calcified nodule is seen in right lower lobe. Mildly elevated dome of right hemidiaphragm. Pulmonary trunk is mildly dilated measuring 3.1cm. Tiny hepatic cysts. Old traumatic changes seen in 7th rib on right side in posterolateral aspect. Electronically Signed by: Diane Arciniega MD. (05/01/2023 09:43:29 GRADUATE STUDENT INSTRUCTOR)
--- NOTE | 2023-05-01 11:01 | XRAY ---
CLINICAL HISTORY:fall COMPARISON:None TECHNIQUE:Thin axial CT of the cervical spine was performed with sagittal and coronal reconstructions without contrast. FINDINGS: The vertebral bodies are normal in height. No fracture identified. No evidence of listhesis. Mild loss of cervical lordosis noted likely due to muscular spasm. Degenerative changes are noted cervical spine with multilevel osteophyte formation And uncovertebral joint hypertrophy the lower cervical spine. Intervertebral disc spaces: Slightly reduced disc height noted at multiple levels. Multilevel disc osteophyte complexes noted at cervical spine. No lytic or sclerotic bone lesion. The craniovertebral measures are unremarkable. Calcification of ligamentum nuchae noted. IMPRESSION: 1. No fracture identified. No evidence of listhesis. 2. Moderate cervical spondylosis. 3. Disc osteophyte complexes noted at multiple levels of cervical spine, would recommend MRI for further evaluation. Electronically Signed by: Diane Arciniega MD. (05/01/2023 10:01:15 MICROCHIP SPECIALIST)
[2023-05-01 12:17] LABS: Absolute Neutrophil Ct (ANC) 7.35 x10^3/uL (1.4-6.9); BASOPHIL % 0.4 % (0.0-0.4); Basophil (Absolute #) 0.04 x10^3/uL (0-0.4); Eosinophil % 1.2 % (0.00-5.0); Eosinophil (Absolute #) 0.11 x10^3/uL (0-0.5); Hematocrit 38.4 % (42-50); Hemoglobin 12.3 g/dL (12.5-18.0); IMMATURE GRAN # 0.04 x10^3u/L (0.00-0.03); IMMATURE GRAN % 0.4 % (0.00-0.4); Lymphocyte (Absolute #) 0.84 x10^3/uL (1.0-4.6); Lymphocytes % 9.4 % (24.0-44.0); Mean Cell Volume 107.3 fL (78-100); Mean Corpuscular Hemoglobin 34.4 pg (26-32); Mean Platelet Volume 10.1 fL (7.5-11.0); Monocyte (Absolute #) 0.57 x10^3/uL (0.0-1.3); Monocytes % 6.4 % (0.0-12.0); Neutrophil % 82.2 % (36.0-66.0); Platelet Count 230 x10^3/uL (150-450); Red Blood Count 3.58 x10^6/uL (4.1-5.6); Red Cell Distribution Width 16.2 % (11.5-14.0)
[2023-05-01 12:34] LABS: ALBUMIN 4.2 g/dL (3.5-5.0); ANION GAP 17.1 MEQ/L (5-15); BILIRUBIN,TOTAL 0.5 mg/dL (0.2-1.3); Calcium 9.4 mg/dL (8.4-10.2); Creatinine 1 1.29 mg/dL (0.66-1.25); EST GLOMERULAR FILTRATION RATE 58.7 ML/MIN; Potassium 5.7 mmol/L (3.5-5.1); Total Protein 7.4 g/dL (6.3-8.2)
[2023-05-01 13:35] VITALS: BP 92/63; PULSE 75; RESP 11
== END 2023-05-01 14:17 | disposition short-term general hospital (02) ==
LOC: ED 22:15
DX: R00.1 Bradycardia, unspecified (principal); I95.9 Hypotension, unspecified; E87.5 Hyperkalemia; I13.0 Hypertensive heart and chronic kidney disease with heart failure and stage 1 through stage 4 chronic kidney disease, or unspecified chronic kidney disease; I50.9 Heart failure, unspecified; N18.9 Chronic kidney disease, unspecified; E11.22 Type 2 diabetes mellitus with diabetic chronic kidney disease; E78.5 Hyperlipidemia, unspecified; Z79.01 Long term (current) use of anticoagulants; Z79.84 Long term (current) use of oral hypoglycemic drugs; Z79.891 Long term (current) use of opiate analgesic; Z79.899 Other long term (current) drug therapy
CPT/HCPCS: 36000; 36415; 51702; 70450; 71250; 72125; 80048; 80053; 83735; 84484; 85025; 93005; 94640; 96374; 96375; 96376; 99285; 99291; J0461; J0612; J1610; J1815; J1940; J2405; J7609; A9270-GY

== ENCOUNTER 2023-08-18 12:47 | Emergency (ER) | payer MEDICARE, OTHER ==
[2023-08-18 12:59] VITALS: PULSE 97; RESP 58; TEMP 101.5
[2023-08-18] MEDS ORDERED: Sodium Chloride 0.9% 1000 ML 1,000 ML ONE (13:01)
--- NOTE | 2023-08-18 13:09 | ERPHSYRPT ---
- History of Present Illness Time Seen by Provider: 08/18/23 12:55 Source: family (Patient's spouse provided additional, independent history), EMS, old records Exam Limitations: clinical condition Physician History: This is a 67-year-old obese white male patient who was brought to the emergency department and a code arrest scenario from home. Additional, independent history was obtained from the acupuncture physician staff as well as the patient's spouse. Patient has been refusing to eat, drink and take his medication. Patient is aware that he is supposed to be on a BiPAP machine which she refuses to use. Patient has multiple medical problems including CHF, atrial fibrillation on Xarelto, coronary artery disease, COPD, hypertension, diabetes, hyperlipidemia and morbid obesity. Patient sleeps in a hospital bed at home and approximately noon, the patient's spouse went to check on him and he was unresponsive with agonal breathing. The spouse contacted the patient's cardiology office and decision was made to call for the paramedics. The paramedics arrived and the patient was unresponsive, agonal breathing with no pulse. CPR was started approximately 12 minutes after the paramedics were notified. En route to our facility the patient, an Igel oral airway was placed, patient received CPR and 5 rounds of epinephrine, Narcan injection as well as bicarb injection. Patient arrived to our facility at approximately 1246 with CPR in progress. Patient appeared to be in PEA on the monitor. Patient's spouse had not yet arrived to the emergency department Timing/Duration: today Activities at Onset: none Severity of Pain-Max: none Severity of Pain-Current: none Nitro Today/Relief: no nitro taken today Aspirin Treatment Today: no aspirin today Associated Symptoms: other Allergies/Adverse Reactions: pramipexole [From Mirapex] Allergy (Intermediate, Verified 08/18/23 13:11) hallucinations Home Medications: Gabapentin 800 mg PO TID 06/09/13 [History] Allopurinol 100 mg [Zyloprim 100 mg] 100 mg PO DAILY 01/10/18 [History] Metoprolol Succinate 100 mg [Toprol Xl 100 MG] 50 mg PO DAILY 01/10/18 [History] PANTOPRAZOLE 40 mg Tablet [Protonix 40MG Tablet] 40 mg PO QAM 01/10/18 [History] Rivaroxaban [Xarelto] 20 mg PO HS 05/24/23 [History] Albuterol 2.5 mg/3 ml Neb [Proventil 2.5 mg/3 ml Neb] 2.5 mg IH Q4-6HPRN PRN 05/01/23 [History] Atorvastatin Calcium 80 mg PO DAILY 05/01/23 [History] Clotrimazole/Betamethasone Dip [Clotrimazole-Betamethasone Lot] 1 applic TP BID 05/01/23 [History] Cyanocobalamin 1000 Mcg/ml [Cyanocobalamin B-12 1000 MCG/ML] 1,000 mcg IM UD 05/01/23 [History] Diphenoxylate HCl/Atropine [Lomotil Tablet] 1 each PO TIDPRN PRN 05/01/23 [History] Empagliflozin [Jardiance] 10 mg PO DAILY 05/01/23 [History] Fluticasone/Umeclidin/Vilanter [Trelegy Ellipta 100-62.5-25] 1 each IH DAILY 05/01/23 [History] Hydrocodone/Acetaminophen [Hydrocodone-Acetamin 10-325 mg] 1 each PO Q6HPRN PRN 05/01/23 [History] Latanoprost [Xalatan] 1 ml OP HS 05/01/23 [History] Losartan Potassium 50 mg [Cozaar 50 MG] 50 mg PO DAILY 05/01/23 [History] Metformin HCl [Glumetza] 1,000 mg PO BID 05/01/23 [History] Primidone 50 MG [Mysoline 50Mg] 200 mg PO TID 05/01/23 [History] Propranolol HCl [Inderal ] 20 mg PO TID 05/01/23 [History] Rasagiline Mesylate 1 mg PO DAILY 05/01/23 [History] Spironolactone 25 mg [Aldactone 25 MG] 25 mg PO DAILY 05/01/23 [History] Tamsulosin HCl 0.4 mg [Flomax 0.4 MG] 0.4 mg PO DAILY 05/01/23 [History] Torsemide 20 mg [Demadex 20 mg] 40 mg PO BID 05/01/23 [History] Hx Tetanus, Diphtheria Vaccination/Date Given: Yes Hx Influenza Vaccination/Date Given: Yes Hx Pneumococcal Vaccination/Date Given: Yes Travel Risk - International Travel Have you traveled outside of the country in past 3 weeks: No (Patient unresponsive) - Coronavirus Screening Are you exhibiting any of the following symptoms?: No Close contact with a COVID-19 positive Pt in past 14-21 Days: No - Vaccine Status Have you recieved a Covid-19 vaccination: Yes Front End Assistant: Moderna - Vaccination Dates Date of 2cond Vaccination (if applicable): 2020 - Review of Systems Constitutional: No Symptoms (Patient unresponsive.) Eyes: No Symptoms Ears, Nose, & Throat: No Symptoms Respiratory: No Symptoms ( Igel oral airway in place) Cardiac: No Symptoms Abdominal/Gastrointestinal: No Symptoms Genitourinary Symptoms: No Symptoms Musculoskeletal: No Symptoms Skin: Other (Generalized skin mottling) Neurological: No Symptoms Psychological: No Symptoms Endocrine: No Symptoms Hematologic/Lymphatic: No Symptoms Immunological/Allergic: No Symptoms All Other Systems: Reviewed and Negative - Past Medical History Pertinent Past Medical History: Yes Neurological History: No Pertinent History Cardiac History: Congestive Heart Failure, High Cholesterol, Hypertension Respiratory History: Bronchitis, CHF, COPD Endocrine Medical History: Diabetes Type II Musculoskeletal History: Arthritis, Degenerative Disk Disease GI Medical History: GERD Other Medical History: PREVIOUS BILATERA RENETTA; 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 HAD B CTR APPROX 20 YEARS AGO. P[place]INSON ,NODULES ON LUNG 2022. 80% coronary artery blockage and scheduled for heart cath - Past Surgical History Past Surgical History: Yes Musculoskeletal: Joint Replacement, Orthopedic Surgery Other Surgical History: CARPAL TUNNEL BILAT. LT FOOT BONE SPUR. SHOULDER,. HIPS - Social History Smoking Status: Former smoker Exposure to second hand smoke: No Alcohol Use: Socially Drug Use: none Patient Lives Alone: No Significant Family History: no pertinent family hx - Nursing Vital Signs Nursing Vital Signs: Initial Vital Signs Temperature 101.5 F 08/18/23 12:55 Pulse Rate 97 H 08/18/23 12:55 Respiratory Rate 58 H 08/18/23 12:55 - Physical Exam General Appearance: obese, other (Unresponsive with i-gel oral airway in place) Eye Exam: other (Pupils unreactive) Ears, Nose, Throat Exam: dry mucous membranes Neck Exam: normal inspection Respiratory Exam: other (No spontaneous breath sounds) Cardiovascular Exam: other (PEA on the monitor) Gastrointestinal/Abdomen Exam: No tenderness Rectal Exam: not done Extremity Exam: other (Right lower extremity interosseous line in place) Neurologic Exam: other (Unresponsive) Skin Exam: mottled Lymphatic Exam: No adenopathy (Generalized) SpO2 Interpretation: O2 applied, airway management int. O2 Delivery: Ambu-Bag - Course Nursing assessment & vital signs reviewed: Yes EKG Interpreted by Me: RATE (81), A-fib, Right Bundle Branch Block, Other (LPFB present) Ordered Tests: Active Orders 24 hr Category Date Time Status VBG [VENOUS BLOOD GAS] Stat Lab 08/18/23 13:28 Ordered Medication Summary Discontinued Medications Generic Name Dose Route Start Last Admin Trade Name Hardeep PRN Reason Stop Dose Admin Epinephrine HCl 3 mg 08/18/23 13:13 Epinephrine 1 Mg/10 Ml Abbj 0.1 Mg/Ml Syr .ROUTE 08/18/23 13:14 .STK-MED ONE Sodium Chloride Confirm 08/18/23 13:01 Sodium Chloride 0.9% 1000 Ml Administered 08/18/23 13:02 Dose 1,000 mls @ ud .ROUTE .STK-MED ONE - Progress Progress: unchanged Air Movement: poor Progress Note: 08/18/23 13:37 Patient arrived to the emergency department unresponsive and a code/cardiac arrest manner. Despite the CPR, including i-gel, 2 additional rounds of epinephrine the patient continued to be in PEA. For a brief period of time patient had a very faint palpable pulse. I then went in to speak with the patient's spouse. The patient's spouse stated that she did not want the patient to be intubated and on a mechanical ventilator. This was the wish of the patient. She also stated that the patient has been "dying" for the last 2 to 3 weeks. Patient had stopped eating and drinking over the last several days. He stopped taking his medication. During the update and discussion with the patient's 6, the patient's pulse again stopped. The patient's spouse is refusing any further CPR, oxygen therapy or medication to continue. The patient went asystole at 1305. Per the patient's spouse wishes, we did not intervene. Blood Culture(s) Obtained: No Antibiotics given: No Counseled pt/family regarding: diagnosis Medical Desision Making - Independent Historian Additional History obtained from: Spouse, Bioinformatics Analyst/EMT - Diagnostic Testing Diagnostic test were ordered, analyzed, and reviewed by me: Yes Radiological Interpretation: Interpreted by me - Risk of complications The pt has a high risk of morbidity or mortality based on: Decision not to resucitate - Departure Departure Disposition: Clinical Impression: Cardiac arrest, PEA (Pulseless electrical activity), Asystole Condition: Critical Care Time: Yes Critical Care Time(excluding separately billable procedures): Critical 30-74 mins (30 minutes) Referrals: [facility] [Primary Care Provider] - Follow up/PCP as directed
[2023-08-18] MEDS ORDERED: EPINEPHRINE ABBOJECT 1 MG/10 ML ONE (13:13)
[2023-08-18 13:29] LABS: VBG CARBOXYHEMOGLOBIN 0.2 % T HGB (0.0-6.9); VBG HEMOGLOBIN 13.4; VBG O2 SATURATION 27.4 (95-100); VBG PCO2 79 mm/Hg (42-55); VBG PO2 37 mm/Hg (25-40); VBG POTASSIUM 5.1 (3.5-5.1)
== END 2023-08-18 19:55 | disposition expired ==
LOC: ED 12:47
DX: I46.9 Cardiac arrest, cause unspecified (principal)
CPT/HCPCS: 82805; 94799; 96374; 96376; 99282; 99291; J0171